=== PATIENT | male | born 2005 | race Caucasian/White ===

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

== ENCOUNTER 2024-07-04 14:55 | Outpatient (CLI) | payer MEDICAID, SELFPAY ==
--- NOTE | 2024-07-04 15:04 | US_ITS ---
WS: [id number] TESTICULAR ULTRASOUND HISTORY: Rt testicular pain. COMPARISON: None available. TECHNIQUE: Real-time and color Doppler imaging utilized to perform a testicular ultrasound. Right testicle: 4.4 cm x 2.7 cm x 2.5 cm. Normal size and echogenicity. No mass or torsion. Normal color Doppler is present throughout. Systolic and diastolic velocities are both present. No significant hydrocele. Right epididymis: Moderate RIGHT spermatocele measuring 2.1 x 1.8 x 2.4 cm. No evidence for acute epididymitis. Left testicle: 4.3 cm x 3.1 cm x 2.2 cm. Normal size and echogenicity. No mass or torsion. Normal color Doppler is present throughout. Systolic and diastolic velocities are both present. No significant hydrocele. Left epididymis: Normal epididymis with no increased vascularity. No inguinal hernia is noted during Valsalva. US/US scrotum [id number] IMPRESSION: 1. No testicular mass or torsion. 2. No inguinal hernias identified. 3. RIGHT spermatocele measures 2.1 x 1.8 x 2.4 cm.
== END 2024-07-04 14:56 | disposition home or self-care (01) ==
LOC: RAD 14:58
PROVIDERS: PCP Nurse Practitioner Family; Visit Provider Nurse Practitioner Family
DX: N50.811 Right testicular pain (principal); N43.41 Spermatocele of epididymis, single
CPT/HCPCS: 76870

== ENCOUNTER 2025-02-14 12:03 | Emergency (ER) | payer MEDICAID, SELFPAY ==
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
--- OUTSIDE RECORDS SUMMARY | 2025-02-14 12:12 | XMS_ITS | Patient Health Record ---
Author Organization [facility] Address [address] [place] [address] Care Team Providers Care Condenser Tester Name Role Phone tammiLili Corrales Primary Care Provider Allergies No Known Allergies Reason For Referral No Information Medications Medication SIG (Take, Route, Fr equency, Duration) Notes Start Date End Date Status Escitalopram Oxalate Active guanFACINE HCl Activ e Peridex 0.12 % Solution 1/2 cap fill - s wish for 1 minute. DO NOT SWALLOW Mouth/Throat 2x daily; Duration: 7 days 12/01/2021 Active traZODone HCl Active Ziprasidone HCl Acti ve Social History Sex Assigned At : Social History Observation Description Sex Assigned At Male Plan Of Treatment No Information Insurance Providers Payer Name Payer Address Payer Phone Subscriber Number Group Number Insured Name Patient Relationship to Insured Coverage Start Date Coverage End Date [employer] [address] [address] [place] [address] [phone] [id number] Kashmir Wilcox Self - patient is the insured [employer] [address] [address] [place] [id number] Kashmir Wilcox Self - patient is the insured Medical (General) History Medical History History ICD Code anger issues
[2025-02-14 12:26] VITALS: BP 138/87; PULSE 95; RESP 18; O2SAT 97
--- NOTE | 2025-02-14 12:39 | XR_ITS ---
WS: [id number] Exam: XR acute abdomen series [id number] Date/Time of Exam: 02/14/2025 12:45 PM Reason For Exam: abdominal pain DLP: PA chest. No priors. Lungs are fully inflated and clear. Normal cardiomediastinal silhouette. Unremarkable bony structures. No pleural effusion. XR/XR acute abdomen series [id number] IMPRESSION: 1. Normal chest. Flat and erect abdomen. No bowel obstruction or free air. No sign of organ enla rgement. Surgical clips superimpose the proximal RIGHT femur. Bony sclerosis of the pubic symphysis. Mild levoscoliosis of the thoracolumbar spine IMPRESSION: 1. No acute abdominal finding.
--- NOTE | 2025-02-14 13:06 | W.ED.GENADLT ---
HPI - General Adult General: Chief complaint: General Medical Stated complaint: Bleeding from bottom Time Seen by Provider: 02/14/25 13:03 History of Present Illness: 19-year-old male who is the emergency room with continued bright red blood per rectum after having used a dildo 2 days ago. He says he has done this before and had some bleeding but it stopped but this has not stopped this time. Has some mild abdominal pain. Nothing focal. No nausea or vomiting. Normal stools. Related Data Home Medications ?Medication ?Instructions ?Recorded ?Confirmed ziprasidone HCl 80 mg capsule 80 mg PO BEDTIME 05/02/21 02/10/25 (Geodon) trazodone 50 mg tablet 100 mg PO BEDTIME 06/21/21 02/10/25 chlorhexidine gluconate 0.12 % 15 ml buccal BID 06/30/21 02/10/25 mouthwash (Peridex) ergocalciferol (vitamin D2) 1,250 50,000 unit PO .ON MON,06/30/21 02/10/25 mcg (50,000 unit) capsule (Vitamin D2) guanfacine 2 mg tablet,extended 2 mg PO QAM 06/30/21 02/10/25 release 24 hr (Intuniv ER) Previous Rx's ?Medication ?Instructions ?Recorded ziprasidone HCl 40 mg capsule 40 mg PO QAM #30 caps 04/02/21 (Geodon) dextromethorphan HBr 15 mg capsule 30 mg (2 x 15 mg) PO Q8H PRN cough 02/10/25 (Cough Gels (DM)) #30 caps loratadine 10 mg tablet 10 mg PO BID PRN drainage #30 tabs 02/10/25 Allergies Allergy/AdvReac Type Severity Reaction Status Date / Time No Known Allergies Allergy Verified 02/10/25 11:49 Review of Systems Narrative: Constitutional symptoms: Negative except as documented in HPI. Skin symptoms: Negative except as documented in HPI. Eye symptoms: Negative except as documented in HPI. ENMT symptoms: Negative except as documented in HPI. Respiratory symptoms: Negative except as documented in HPI. Cardiovascular symptoms: Negative except as documented in HPI. Gastrointestinal symptoms: Negative except as documented in HPI. Genitourinary symptoms: Negative except as documented in HPI. Musculoskeletal symptoms: Negative except as documented in HPI. Neurologic symptoms: Negative except as documented in HPI. Psychiatric symptoms: Negative except as documented in HPI. Endocrine symptoms: Negative except as documented in HPI. [facility] ED PFS: Medical History (Updated 02/14/25 @ 13:56 by Tg Roe MD) Viral upper respiratory tract infection Adjustment disorder with mixed anxiety and depressed mood Social History Smoking and tobacco/nicotine status: never used tobacco/nicotine Quit status (tobacco/nicotine): has quit using Year quit tobacco: 2020 Second hand smoke exposure: Yes Alcohol intake: never Substance/Drug Use: never Physical Exam Narrative: EXAM NARRATIVE: General: Alert, no acute distress. Skin: Warm, dry. Head: Normocephalic, atraumatic. Neck: Supple, trachea midline. Eye: Extraocular movements are intact. Ears, nose, mouth and throat: mucosa moist. Cardiovascular: Regular, Normal peripheral perfusion. Respiratory: Lungs are clear to auscultation, respirations are non-labored, breath sounds are equal, Symmetrical chest wall expansion. Gastrointestinal: Soft, Nontender, Non distended Musculoskeletal: Normal ROM, no deformity. Neurological: Alert and oriented, No focal neurological deficit observed. Psychiatric: Cooperative, appropriate mood & affect. Course Vital Signs: Vital signs: Vital Signs Pulse Rate 95 02/14/25 12:26 Respiratory Rate 18 02/14/25 12:26 Blood Pressure 138/87 02/14/25 12:26 Pulse Oximetry 97 02/14/25 12:26 Oxygen Delivery Me thod Room Air 02/14/25 12:26 MDM - General Adult Medical Decision Making Medical decision making: Differential diagnosis including but not limited to and based on the above HPI, review of systems and physical exam: The biggest concern would be if there was perforation of the bowel so an abdominal series was ordered to rule out free air in the abdomen. This is very unlikely as the patient has very nontender. Also basic lab work was ordered. Orders placed to evaluate differential diagnosis based on the above differential, HPI and physical exam Acute abdominal series: chest x-ray: No acute process. No obvious infiltrates. No pneumothorax. No cardiomegaly. This was reviewed and interpreted by myself the emergency room physician Abdomen x-ray: Nonspecific bowel gas pattern. No evidence of free air or obstruction. This was reviewed and interpreted by myself the emergency room physician. I also reviewed the radiology report. Lab Review: Laboratory results were reviewed and interpreted by myself the emergency room physician. No leukocytosis. No anemia. No renal failure I reviewed the patient's medical record. Reexamination: Patient remained stable. No increased work of breathing. No altered mental status. No focal motor deficits. Assessment and plan: Rectal bleeding - Discharged home - Discussed plan with patient. Answered any questions. - Evaluation and treatment of this problem were appropriate in the emergency setting. Lab Data 02/14/25 13:47 02/14/25 13:47 Radiology Impressions Chest/Abdomen X-ray 02/14/25 12:39 IMPRESSION: 1. Normal chest. Flat and erect abdomen. No bowel obstruction or free air. No sign of organ enlargement. Surgical clips superimpose the proximal RIGHT femur. Bony sclerosis of the pubic symphysis. Mild levoscoliosis of the thoracolumbar spine IMPRESSION: 1. No acute abdominal finding. Laboratory Results WBC 8.75 10^3/uL (3.29-11.43) 02/14/25 13:47 RBC 5.04 10^6/uL (3.85-5.65) 02/14/25 13:47 Hgb 14.30 g/dL (11.27-16.99) 02/14/25 13:47 Hct 41.6 % (37-53) 02/14/25 13:47 MCV 82.5 fl (82-101) 02/14/25 13:47 MCH 28.4 pg (27-33) 02/14/25 13:47 MCHC 34.4 g/dL (30-55) 02/14/25 13:47 RDW 12.6 % (12.1-15.1) 02/14/25 13:47 Plt Count 268 10^3/cmm (157-399) 02/14/25 13:47 MPV 9.3 fL (7.4-10.4) 02/14/25 13:47 Neut % (Auto) 57.4 % 02/14/25 13:47 Lymph % (Auto) 25.1 % 02/14/25 13:47 Hart % (Auto) 12.0 % 02/14/25 13:47 Eos % (Auto) 4.7 % 02/14/25 13:47 Baso % (Auto) 0.5 % 02/14/25 13:47 Neut # (Auto) 5.02 10^3/uL (1.8-7.7) 02/14/25 13:47 Lymph # (Auto) 2.2 10^3/uL (0.8-4.8) 02/14/25 13:47 [place] # (Auto) 1.1 10^3/uL (0.2-0.9) H 02/14/25 13:47 Eos # (Auto) 0.4 10^3/uL (0.0-0.8) 02/14/25 13:47 Baso # (Auto) 0.0 10^3/uL (0.0-0.1) 02/14/25 13:47 Nucleated RBC % (auto) 0 % 02/14/25 13:47 Nucleated RBCs # 0.0 /100WBC 02/14/25 13:47 Sodium 136 mmol/L (136-145) 02/14/25 13:47 Potassium 4.4 mmol/L (3.5-5.1) 02/14/25 13:47 Chloride 99 mmol/L (98-107) 02/14/25 13:47 Carbon Dioxide 26 mmol/L (22-29) 02/14/25 13:47 Anion Gap 15.4 (5-19) 02/14/25 13:47 BUN 12 mg/dL (6-20) 02/14/25 13:47 Creatinine 0.8 mg/dL (0.7-1.2) 02/14/25 13:47 GFR Calculation 122.0 mL/min (90-130) 02/14/25 13:47 Glucose 99 mg/dL (65-115) 02/14/25 13:47 Calculated Osmolality 282 mOsm/kg (285-295) L 02/14/25 13:47 Calcium 9.2 mg/dL (8.5-10.5) 02/14/25 13:47 Total Bilirubin 0.4 mg/dL (0.15-1.2) 02/14/25 13:47 AST 28 U/L (0-40) 02/14/25 13:47 ALT 35 U/L (0-41) 02/14/25 13:47 Alkaline Phosphatase 101 U/L (40-130) 02/14/25 13:47 Total Protein 7.9 g/dL (6.6-8.7) 02/14/25 13:47 Albumin 4.3 g/dL (3.5-5.2) 02/14/25 13:47 Globulin 3.6 g/dL (1.3-4.6) 02/14/25 13:47 All radiology interpretation(s) finalized by discharge Discharge Plan Discharge Patient Disposition: Home Clinical Impression: Rectal bleeding Condition: Stable Prescriptions: No Action ziprasidone HCl [Geodon] 40 mg capsule 40 mg PO QAM Qty: 30 2RF loratadine 10 mg tablet 10 mg PO BID PRN (Reason: drainage) Qty: 30 0RF dextromethorphan HBr [Cough Gels (DM)] 15 mg capsule 30 mg PO Q8H PRN (Reason: cough) Qty: 30 0RF ziprasidone HCl [Geodon] 80 mg capsule 80 mg PO BEDTIME Rx Instructions: give with food (meal/snack) trazodone 50 mg tablet 100 mg PO BEDTIME Intuniv ER 2 mg Tablet Extended Release 24 Hr 2 mg PO QAM Vitamin D2 1,250 mcg (50,000 unit) Capsule 50,000 unit PO .ON Peridex 0.12 % Mouthwash 15 ml BUCCAL BID Discharge Orders: Discharge ED (Routine); Ordered 02/14/25 Ordered By: Tg Roe Referrals: Catrachita Meneses FNP [Primary Care Provider, Family Practice] Discharge Diet: Usual diet Discharge Activity: Increase activity as tolerated Patient Instructions: Rectal Bleeding (ED), Opioid Safety, Pain Management, Patient Portal & [facility] Instructions Activity Restrictions/Additional Instructions: Thank you for choosing [facility] for your healthcare needs today. You have been screened and evaluated and felt safe for discharge. Health conditions do change or evolve sometimes and as such it is important that you follow up with your Primary Doctor to be re checked, 3-5 days is a general good time frame for follow up. You are always welcome to return to the ED for re assessment if your symptoms are worsening or you have new concerns Print Language: Romansh Coding Level of Care Code ED Manager Mail for Mindi Teague
[2025-02-14 13:51] LABS: Hematocrit 41.6 % (37-53); Hemoglobin 14.30 g/dL (11.27-16.99); Mean Corpuscular HGB Conc 34.4 g/dL (30-55); Mean Corpuscular Hemoglobin 28.4 pg (27-33); Mean Corpuscular Volume 82.5 fl (82-101); Nucleated Red Blood Cells % 0 %; Platelet Count 268 10^3/cmm (157-399); Red Blood Count 5.04 10^6/uL (3.85-5.65); White Blood Count 8.75 10^3/uL (3.29-11.43)
[2025-02-14 14:08] LABS: Anion Gap 15.4 (5-19); Blood Urea Nitrogen 12 mg/dL (6-20); Carbon Dioxide 26 mmol/L (22-29); Chloride 99 mmol/L (98-107); Potassium 4.4 mmol/L (3.5-5.1); Sodium 136 mmol/L (136-145)
[2025-02-14 14:09] LABS: Alanine Aminotransferase 35 U/L (0-41); Albumin Level 4.3 g/dL (3.5-5.2); Alkaline Phosphatase 101 U/L (40-130); Aspartate Amino Transferase 28 U/L (0-40); Calcium 9.2 mg/dL (8.5-10.5); Creatinine Clr Calc Pharmacy 207.4410; Globulin 3.6 g/dL (1.3-4.6); Glucose 99 mg/dL (65-115); Osmolality Calculated 282 mOsm/kg (285-295); Total Protein 7.9 g/dL (6.6-8.7)
[2025-02-14 14:34] VITALS: BP 117/73; PULSE 88; O2SAT 96
== END 2025-02-14 14:35 | disposition home or self-care (01) ==
PROVIDERS: Emergency Provider Emergency Medicine; PCP Nurse Practitioner Family
DX: K62.5 Hemorrhage of anus and rectum (principal)
CPT/HCPCS: 36415; 74022; 80053; 85025; 99284

== ENCOUNTER 2025-05-04 13:49 | Emergency (ER) | payer MEDICAID, SELFPAY ==
--- NOTE | 2025-05-04 13:53 | ECG_ITS ---
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 [email or web address]
[2025-05-04 13:55] VITALS: BP 117/81; PULSE 95; RESP 16; TEMP 36.8; O2SAT 95; BMI 42.7
--- OUTSIDE RECORDS SUMMARY | 2025-05-04 14:04 | XMS_ITS | Patient Health Record ---
Author Organization [facility] Address [address] [place] [address] Care Team Providers Care Shoe Lay Out Planner Name Role Phone tammiLili Corrales Primary Care Provider [phone] Allergies No Known Allergies Reason For Referral [...] End Date [facility] [address] [address] [place] [address] [id number] Kashmir Wilcox Self - patient is the insured [employer] [address] [address] [place] [id number] Kashmir Wilcox Self - patient is the insured Medical (General) History Medical History History ICD Code anger issues
--- NOTE | 2025-05-04 14:07 | XRR_ITS ---
PROCEDURE INFORMATION: Exam: XR Chest Exam date and time: 05/04/2025 2:20 PM Age: 19 years old Clinical indication: Pain; Chest pressure; Additional info: Intermittent chest pain; Palpitations; Anxiety TECHNIQUE: Imaging protocol: Radiologic exam of the chest. Views: 1 view. COMPARISON: CR (CHEST, ) 06/19/2021 10:22 PM FINDINGS: Lungs: Unremarkable. No consolidation or mass. Pleural spaces: Unremarkable. No pleural effusion. No pneumothorax. Heart/Mediastinum: Unremarkable. No cardiomegaly. Bones/joints: Unremarkable. XR/XR chest 1V portable [id number] IMPRESSION: No acute findings.
[2025-05-04 14:08] VITALS: BP 117/81; PULSE 97; O2SAT 99
[2025-05-04 14:24] LABS: Hematocrit 39.7 % (37-53); Hemoglobin 13.40 g/dL (11.27-16.99); Mean Corpuscular HGB Conc 33.8 g/dL (30-55); Mean Corpuscular Hemoglobin 28.3 pg (27-33); Mean Corpuscular Volume 83.8 fl (82-101); Nucleated Red Blood Cells % 0 %; Platelet Count 285 10^3/cmm (157-399); Red Blood Count 4.74 10^6/uL (3.85-5.65); White Blood Count 7.83 10^3/uL (3.29-11.43)
--- NOTE | 2025-05-04 14:26 | ED_ITS ---
HPI - Chest Pain 2 General: Chief Complaint: Chest Pain Stated Complaint: chest pain; dizziness Source: patient Mode of arrival: ambulatory Limitations: no limitations History of Present Illness: Patient is a 19-year-old male present to the emergency department by EMS complaining of chest pain that began while at work. Notes that it began about 45 minutes ago he has been dealing with chest pains like this since he was 12 years old has never seen primary care or had his chest pain evaluated from that standpoint. Notes that the pain started while he was standing he was not significant exerting himself, it went away soon after other than having a short recurrence with ambulance he states he is symptom-free at this time. He notes anxiety, he is requesting to use his vape for this and is denying needing anything for anxiety. He has a history of anxiety. Notes that he has been feeling intermittently dizzy and presyncopal but no syncopal episodes or injuries. He notes that he has pain like this once a week, it is nonradiating. No shortness of breath associated his vitals stable at this time. No medications given prehospital. MD complaint: chest pain Onset (ago): minute(s) Timing of current episode: now resolved Prior episodes: Yes Onset: during rest Associated symptoms: Deny abdominal pain, dyspnea, fever(s), nausea, palpitations or vomiting Related Data Home Medications ?Medication ?Instructions ?Recorded ?Confirmed ziprasidone HCl 80 mg capsule 80 mg PO BEDTIME 1 02/10/25 (Geodon) trazodone 50 mg tablet 100 mg PO BEDTIME 06/21/21 0 02/10/25 chlorhexidine gluconate 0.12 % 15 ml buccal BID 02/10/25 mouthwash (Peridex) ergocalciferol (vitamin D2) 1,250 50,000 unit PO .ON M ON,06/30/21 02/10/25 mcg (50,000 unit) capsule (Vitamin D2) guanfacine 2 mg tablet,extended 2 mg PO QAM 06/30/21 0 02/10/25 release 24 hr (Intuniv ER) Previous Rx's ?Medication ?Instructions ?Recorded ziprasidone HCl 40 mg capsule 40 mg PO QAM #30 caps (Geodon) dextromethorphan HBr 15 mg capsule 30 mg (2 x 15 mg) P O Q8H PRN cough 02/10/25 (Cough Gels (DM)) #30 caps loratadine 10 mg tablet 10 mg PO BID PRN drainage #3 0 tabs 02/10/25 Allergies Allergy/AdvReac Type Severity Reaction Status Date / Time No Known Allergies Allergy Verified 02/10/25 11:49 Review of Systems 2 General: Reports: 10 or more systems reviewed and unremarkable except in HPI and below Const: Denies: fever(s), chills or fatigue Eyes: Denies: change in vision ENMT: Denies: throat pain, ear or mastoid pain or nasal discharge Card: Reports: chest pain and pre-syncope; Denies: palpitations, swelling of feet/ankles or lightheadedness Resp: Denies: dyspnea, productive cough or wheezing GI: Denies: abdominal pain, nausea, vomiting, diarrhea or constipation : Denies: flank pain, difficulty urinating, dysuria or urinary frequency Musc: Denies: neck pain, back pain or joint pain Skin/Breast: Denies: rash Neuro: Reports: dizziness; Denies: headache(s), numbness in extremities or weakness in extremities PFSH ED 2 PFSH: Medical History Viral upper respiratory tract infection Adjustment disorder with mixed anxiety and depressed mood Social History Smoking and tobacco/nicotine status: never used tobacco/nicotine Quit status (tobacco/nicotine): has quit using Year quit tobacco: 2020 Second hand smoke exposure: Yes Alcohol intake: never Substance/Drug Use: never Physical Exam 2 Const: COMMON NORMALS: no acute distress and no limitations GENERAL APPEARANCE: cooperative, well developed and anxious O RIENTATION/CONSCIOUSNESS: Yes awake HENMT: COMMON NORMALS: normocephalic, atraumatic and hearing grossly normal bilaterally HEAD & SCALP: normocephalic and atraumatic Eye: COMMON NORMALS: Equal, round and reactive pupils present, EOMs intact bilaterally and conjunctivae normal CONJUNCTIVA: Yes conjunctivae normal P UPIL: Yes Equal, round and reactive pupils present Neck/C-Spine: COMMON NORMALS: full ROM, supple and no JVD Resp: COMMON NORMALS: normal respiratory effort, No retractions, No use of accessory muscles and clear to auscultation bilaterally AUSCULTATION: clear to auscultation bilaterally Cardio: COMMON NORMALS: no JVD, regular rate, regular rhythm, No clicks present (Cardio), No murmurs present (Cardio) and No rub (Cardio) RATE: r egular rate RHYTHM: regular rhythm Extremity: COMMON NORMALS: normal to inspection, full ROM and capillary refill normal Skin: COMMON NORMALS: no rashes or lesions noted GENERAL SKIN EXAM: no rashes or lesions noted Course 2 Vital Signs: Vital signs: Vital Signs Temperature 98.3 F 05/04/25 13:55 Pulse Rate 97 05/04/25 14:08 Respiratory Rate 16 05/04/25 13:55 Blood Pressure 117/81 05/04/25 14:08 Pulse Oximetry 99 05/04/25 14:08 Oxygen Delivery Me thod Room Air 05/04/25 14:08 MDM - Chest Pain Medical Decision Making Patient presented by ambulance for reports chest pain notes that this is been years that he has dealt with this has not seen primary care. It started while he was at work and standing, not significantly exerting himself. Pain-free on arrival was not given any medications prehospital. History of anxiety, does not take anything anxiety states he just vapes. X-ray here normal rest of his labs were normal and EKG showing no rhythm changes. This is not cardiac, likely anxiety and stress and he will be discharged home but is told to follow-up primary care in regards to longevity of symptoms as he might require outpatient cardiac workup if his symptoms persist. Patient agrees with this plan. Lab Data 05/04/25 14:18 05/04/25 14:18 Radiology Impressions Chest X-Ray 05/04/25 14:07 IMPRESSION: No acute findings. Laboratory Results WBC 7.83 10^3/uL (3.29-11.43) 05/04/25 14:18 RBC 4.74 10^6/uL (3.85-5.65) 05/04/25 14:18 Hgb 13.40 g/dL (11.27-16.99) 05/04/25 14:18 Hct 39.7 % (37-53) 05/04/25 14:18 MCV 83.8 fl (82-101) 05/04/25 14:18 MCH 28.3 pg (27-33) 05/04/25 14:18 MCHC 33.8 g/dL (30-55) 05/04/25 14:18 RDW 12.7 % (12.1-15.1) 05/04/25 14:18 Plt Count 285 10^3/cmm (157-399) 05/04/25 14:18 MPV 9.3 fL (7.4-10.4) 05/04/25 14:18 Neut % (Auto) 59.2 % 05/04/25 14:18 Lymph % (Auto) 23.9 % 05/04/25 14:18 [place] % (Auto) 13.8 % 05/04/25 14:18 Eos % (Auto) 2.2 % 05/04/25 14:18 Baso % (Auto) 0.5 % 05/04/25 14:18 Neut # (Auto) 4.64 10^3/uL (1.8-7.7) 05/04/25 14:18 Lymph # (Auto) 1.9 10^3/uL (0.8-4.8) 05/04/25 14:18 [place] # (Auto) 1.1 10^3/uL (0.2-0.9) H 05/04/25 14:18 Eos # (Auto) 0.2 10^3/uL (0.0-0.8) 05/04/25 14:18 Baso # (Auto) 0.0 10^3/uL (0.0-0.1) 05/04/25 14:18 Nucleated RBC % (auto) 0 % 05/04/25 14:18 Nucleated RBCs # 0.0 /100WBC 05/04/25 14:18 Sodium 137 mmol/L (136-145) 05/04/25 14:18 Potassium 4.2 mmol/L (3.5-5.1) 05/04/25 14:18 Chloride 100 mmol/L (98-107) 05/04/25 14:18 Carbon Dioxide 28 mmol/L (22-29) 05/04/25 14:18 Anion Gap 13.2 (5-19) 05/04/25 14:18 BUN 11 mg/dL (6-20) 05/04/25 14:18 Creatinine 0.7 mg/dL (0.7-1.2) 05/04/25 14:18 GFR Calculation 142.4 mL/min (90-130) H 05/04/25 14:18 Glucose 102 mg/dL (65-115) 05/04/25 14:18 Calculated Osmolality 284 mOsm/kg (285-295) L 05/04/25 14:18 Calcium 9.3 mg/dL (8.5-10.5) 05/04/25 14:18 Total Bilirubin 0.3 mg/dL (0.15-1.2) 05/04/25 14:18 AST 25 U/L (0-40) 05/04/25 14:18 ALT 31 U/L (0-41) 05/04/25 14:18 Alkaline Phosphatase 85 U/L (40-130) 05/04/25 14:18 Total Protein 7.4 g/dL (6.6-8.7) 05/04/25 14:18 Albumin 4.5 g/dL (3.5-5.2) 05/04/25 14:18 Globulin 2.9 g/dL (1.3-4.6) 05/04/25 14:18 All radiology interpretation(s) finalized by discharge Discharge Plan Discharge Patient Disposition: Home Clinical Impression: Chest pain, Anxiety Condition: Stable Prescriptions: No Action ziprasidone HCl [Geodon] 40 mg capsule 40 mg PO QAM Qty: 30 2RF loratadine 10 mg tablet 10 mg PO BID PRN (Reason: drainage) Qty: 30 0RF dextromethorphan HBr [Cough Gels (DM)] 15 mg capsule 30 mg PO Q8H PRN (Reason: cough) Qty: 30 0RF ziprasidone HCl [Geodon] 80 mg capsule 80 mg PO BEDTIME Rx Instructions: give with food (meal/snack) trazodone 50 mg tablet 100 mg PO BEDTIME Intuniv ER 2 mg Tablet Extended Release 24 Hr 2 mg PO QAM Vitamin D2 1,250 mcg (50,000 unit) Capsule 50,000 unit PO .ON Peridex 0.12 % Mouthwash 15 ml BUCCAL BID Discharge Orders: Discharge ED (Routine); Ordered 05/04/25 Ordered By: Ayaan Zuluaga Referrals: Catrachita Meneses FNP [Primary Care Provider, Family Practice] Patient Instructions: Patient Portal & [facility] Instructions Activity Restrictions/Additional Instructions: Discharge Instructions Reason for Visit: You came to the emergency department by ambulance from work with chest pain. What We Found: Your evaluation in the emergency department included: - Electrocardiogram (ECG/heart tracing): Normal - Chest X-ray: Normal - Blood tests: Normal These tests show no evidence of a heart attack or other serious heart or lung problems. Based on your history of anxiety and the pattern of your chest pain over several years, anxiety is the most likely cause of your symptoms. What This Means: Chest pain related to anxiety is common and does not cause heart damage. While the pain feels real and can be frightening, it is not dangerous to your heart. Many people with anxiety experience chest pain, and this can happen repeatedly over time. What You Should Do: 1. Follow up with your primary care doctor within 2 weeks (ideally within 14 days). Your doctor may want to: - Review your symptoms in more detail - Discuss treatment options for anxiety - Consider whether any additional testing is needed 2. Consider counseling or therapy. Research shows that cognitive-behavioral therapy (talk therapy focused on changing thought patterns and behaviors) can significantly reduce chest pain in people with anxiety. This type of therapy has been shown to reduce chest pain frequency by about one-third. 3. Watch for warning signs. Return to the emergency department or call 911 if you develop: - Chest pain that feels different from your usual pain - Chest pain with shortness of breath, sweating, nausea, or pain spreading to your arm or jaw - Fainting or severe dizziness - Any other symptoms that concern you Important Notes: - Depression and anxiety are common in people with chest pain and can be effectively treated - Many people with anxiety-related chest pain benefit from a combination of therapy and sometimes medication prescribed by their doctor - It is safe for you to return to normal activities Medications: No new medications were prescribed at this visit. Continue any medications you are currently taking as directed. Follow-Up: - Schedule an appointment with your primary care doctor within 2 weeks - If you do not have a primary care doctor, please call to establish care with one - Bring these discharge instructions to your appointment Print Language: Georgian Coding Level of Care Code ED Wool And Pelt Grader for Mindi Fwparmjit Heart Score HEART Score Components History: Slightly Suspicous EKG: Normal Age: Less than 45 yrs Risk Factors: No Risk Factors Known Troponin: Baseline Trop <16 ng/L HEART Score RESULT HEART Score: 0
[2025-05-04 14:39] LABS: Alanine Aminotransferase 31 U/L (0-41); Albumin Level 4.5 g/dL (3.5-5.2); Alkaline Phosphatase 85 U/L (40-130); Anion Gap 13.2 (5-19); Aspartate Amino Transferase 25 U/L (0-40); Blood Urea Nitrogen 11 mg/dL (6-20); Calcium 9.3 mg/dL (8.5-10.5); Carbon Dioxide 28 mmol/L (22-29); Chloride 100 mmol/L (98-107); Globulin 2.9 g/dL (1.3-4.6); Glucose 102 mg/dL (65-115); Osmolality Calculated 284 mOsm/kg (285-295); Potassium 4.2 mmol/L (3.5-5.1); Sodium 137 mmol/L (136-145); Total Protein 7.4 g/dL (6.6-8.7)
[2025-05-04 14:49] VITALS: BP 117/81; PULSE 92; O2SAT 92
== END 2025-05-04 14:50 | disposition home or self-care (01) ==
PROVIDERS: Emergency Provider Physician Assistant; PCP Nurse Practitioner Family
DX: R07.9 Chest pain, unspecified (principal); F41.9 Anxiety disorder, unspecified; Z87.891 Personal history of nicotine dependence
CPT/HCPCS: 71045; 80053; 85025; 93005; 99285